=== PATIENT | female | born 1990 | race Caucasian/White ===

== ENCOUNTER → 2017-10-12 | Outpatient (CLI) | payer BC ==
[2017-10-12 12:11] LABS: BASO # 0.1 10^3/uL (0.0-0.2); BASO % 0.5 % (0.0-1.0); EOS # 0.2 10^3/uL (0.0-0.50); EOS % 1.7 % (0.0-3.0); IMMATURE GRANULOCYTE % 0.3 % (0-0); LYMPH # 3.8 10^3/uL (1.5-6.5); LYMPH % 35.4 % (24.0-44.0); MEAN CORPUSCULAR HEMOGLOBIN 27.3 pg (27.0-33.0); MEAN CORPUSCULAR HGB CONC 32.2 g/dl (32.0-36.5); MONO # 0.5 10^3/uL (0.0-0.8); MONO % 4.4 % (0.0-5.0); NEUTROPHILS # 6.1 10^3/uL (1.8-7.7); NEUTROPHILS % 57.7 % (36.0-66.0); PLATELET COUNT, AUTOMATED 333 10^3/uL (150-450); RED CELL DISTRIBUTION WIDTH 13.3 % (11.5-14.5); WHITE BLOOD COUNT 10.6 10^3/uL (4.0-10.0)
[2017-10-12 12:52] LABS: HBsAg Prenatal NEGATIVE (NEGATIVE)
== END ==
LOC: M LAB 08:00
DX: Z3A.09 9 weeks gestation of pregnancy (principal)
CPT/HCPCS: 86762

== ENCOUNTER → 2017-12-09 | Outpatient (CLI) | payer OTHER | LOC: M RAD 10:08 | DX: Z36.9 Encounter for antenatal screening, unspecified (principal); Z3A.19 19 weeks gestation of pregnancy | CPT/HCPCS: 76811 ==

== ENCOUNTER 2017-12-11 12:23 | Emergency (ER) | payer OTHER ==
[2017-12-11 13:51] LABS: INFLUENZA A AMPLIFICATION POSITIVE (NEGATIVE); INFLUENZA B AMPLIFICATION NEGATIVE (NEGATIVE)
== END 2017-12-11 14:22 | disposition home or self-care (01) ==
LOC: M ED 12:23
DX: O99.512 Diseases of the respiratory system complicating pregnancy, second trimester (principal); J09.X2 Influenza due to identified novel influenza A virus with other respiratory manifestations; Z3A.19 19 weeks gestation of pregnancy
CPT/HCPCS: 87502

== ENCOUNTER → 2018-01-14 | Outpatient (CLI) | payer OTHER | LOC: M RAD 09:11 | DX: Z34.82 Encounter for supervision of other normal pregnancy, second trimester (principal) | CPT/HCPCS: 76816 ==

== ENCOUNTER → 2018-02-04 | Outpatient (CLI) | payer OTHER ==
[2018-02-04 09:53] LABS: HEMATOCRIT 32.8 % (36.0-47.0); HEMOGLOBIN 10.5 g/dl (12.0-15.5); MEAN CORPUSCULAR HEMOGLOBIN 28.2 pg (27.0-33.0); MEAN CORPUSCULAR VOLUME 87.9 fl (80.0-96.0); PLATELET COUNT, AUTOMATED 289 10^3/uL (150-450); RED BLOOD COUNT 3.73 10^6/uL (4.00-5.40); RED CELL DISTRIBUTION WIDTH 14.3 % (11.5-14.5); WHITE BLOOD COUNT 10.6 10^3/uL (4.0-10.0)
[2018-02-04 10:13] LABS: GLUCOSE CHALLENGE TEST 1 HOUR 121 MG/DL (LESS THAN 140)
== END ==
LOC: M LAB 08:09
DX: Z34.82 Encounter for supervision of other normal pregnancy, second trimester (principal)
CPT/HCPCS: 82950

== ENCOUNTER 2018-03-11 17:54 | Emergency (ER) | payer OTHER ==
[2018-03-11 18:46] LABS: BASO % 0.2 % (0.0-1.0); EOS # 0.1 10^3/uL (0.0-0.50); HEMATOCRIT 32.4 % (36.0-47.0); HEMOGLOBIN 10.6 g/dl (12.0-15.5); IMMATURE GRANULOCYTE % 0.4 % (0-3.0); LYMPH % 25.3 % (24.0-44.0); MEAN CORPUSCULAR HEMOGLOBIN 28.1 pg (27.0-33.0); MEAN CORPUSCULAR HGB CONC 32.7 g/dl (32.0-36.5); MEAN CORPUSCULAR VOLUME 85.9 fl (80.0-96.0); MONO # 0.5 10^3/uL (0.0-0.8); MONO % 4.2 % (0.0-5.0); NEUTROPHILS # 8.1 10^3/uL (1.8-7.7); NEUTROPHILS % 68.9 % (36.0-66.0); PLATELET COUNT, AUTOMATED 297 10^3/uL (150-450); RED BLOOD COUNT 3.77 10^6/uL (4.00-5.40); RED CELL DISTRIBUTION WIDTH 14.4 % (11.5-14.5); WHITE BLOOD COUNT 11.8 10^3/uL (4.0-10.0)
[2018-03-11 18:53] LABS: AMORPHOUS SEDIMENT SMALL (NEGATIVE); APPEARANCE, URINE HAZY (CLEAR); BACTERIA, URINE AUTO 2+ (NEGATIVE); BILIRUBIN, URINE AUTO NEGATIVE (NEGATIVE); BLOOD, URINE BLOOD NEGATIVE (NEGATIVE); CALCIUM OXALATE CRYSTALS SMALL; COLOR, URINE YELLOW (YELLOW); GLUCOSE, URINE (UA) AUTO NEGATIVE (NEGATIVE); KETONE, URINE AUTO NEGATIVE (NEGATIVE); LEUKOCYTE ESTERASE, URINE AUTO NEGATIVE (NEGATIVE); MUCUS, URINE SMALL (NEGATIVE); NITRITE, URINE AUTO NEGATIVE (NEGATIVE); PROTEIN, URINE AUTO 1+ mg/dL (NEGATIVE); RBC, URINE AUTO 1 /HPF (0-3); SPECIFIC GRAVITY URINE AUTO 1.016 (1.002-1.035); SQUAMOUS EPITHELIAL CELL UR AU 1 /HPF (0-6); UROBILINOGEN, URINE AUTO 0.2 mg/dL (0.0-2.0); WBC, URINE AUTO 1 /HPF (0-3)
[2018-03-11 19:17] LABS: ALBUMIN 2.7 GM/DL (3.2-5.2); ALBUMIN/GLOBULIN RATIO 0.61 (1.00-1.93); ALKALINE PHOSPHATASE 104 U/L (45-117); ALT/SGPT 11 U/L (12-78); ANION GAP 8 MEQ/L (8-16); AST/SGOT 9 U/L (7-37); BILIRUBIN,DIRECT < 0.1 MG/DL (0.0-0.2); BILIRUBIN,TOTAL 0.2 MG/DL (0.2-1.0); BLOOD UREA NITROGEN 7 MG/DL (7-18); CALCIUM LEVEL 9.5 MG/DL (8.5-10.1); CARBON DIOXIDE LEVEL 25 MEQ/L (21-32); CHLORIDE LEVEL 107 MEQ/L (98-107); CREATININE FOR GFR 0.56 MG/DL (0.55-1.30); GLOMERULAR FILTRATION RATE > 60.0 (>60); GLUCOSE, FASTING 106 MG/DL (70-100); POTASSIUM SERUM 3.9 MEQ/L (3.5-5.1); SODIUM LEVEL 140 MEQ/L (136-145); TOTAL PROTEIN 7.1 GM/DL (6.4-8.2)
== END 2018-03-11 20:47 | disposition admitted as inpatient to this hospital (09) ==
LOC: M ED 17:54
DX: O14.93 Unspecified pre-eclampsia, third trimester (principal); Z3A.32 32 weeks gestation of pregnancy
CPT/HCPCS: 93970

== ENCOUNTER 2018-03-11 20:51 | Outpatient (CLI) | payer OTHER ==
[2018-03-11] MEDS: LABETALOL 100 MG TAB PO (22:59)
[2018-03-11 23:13] LABS: TOTAL PROTEIN,RANDOM URINE 44.6 MG/DL (0.0-12.0)
== END 2018-03-11 23:58 | disposition home or self-care (01) ==
LOC: M LDO 20:51
DX: O12.03 Gestational edema, third trimester (principal); Z3A.31 31 weeks gestation of pregnancy
CPT/HCPCS: 59025

== ENCOUNTER → 2018-03-13 | Outpatient (REF) | payer OTHER ==
[2018-03-13 10:55] LABS: TOTAL VOLUME, URINE 1550 ML
[2018-03-13 11:03] LABS: TOTAL PROTEIN 24 HOUR URINE 263.5 MG/24HR (50-150)
== END ==
LOC: M LAB REF 09:46
DX: O13.3 Gestational [pregnancy-induced] hypertension without significant proteinuria, third trimester (principal)

== ENCOUNTER → 2018-03-18 | Outpatient (CLI) | payer OTHER | LOC: M RAD 15:02 | DX: O13.3 Gestational [pregnancy-induced] hypertension without significant proteinuria, third trimester (principal); Z3A.32 32 weeks gestation of pregnancy | CPT/HCPCS: 76819 ==

== ENCOUNTER → 2018-03-25 | Outpatient (CLI) | payer OTHER | LOC: M RAD 14:54 | DX: O13.3 Gestational [pregnancy-induced] hypertension without significant proteinuria, third trimester (principal) | CPT/HCPCS: 76815 ==

== ENCOUNTER → 2018-04-01 | Outpatient (CLI) | payer OTHER | LOC: M RAD 14:53 | DX: O13.3 Gestational [pregnancy-induced] hypertension without significant proteinuria, third trimester (principal); Z3A.35 35 weeks gestation of pregnancy | CPT/HCPCS: 76815 ==

== ENCOUNTER → 2018-04-08 | Outpatient (CLI) | payer OTHER | LOC: M RAD 15:01 | DX: O13.3 Gestational [pregnancy-induced] hypertension without significant proteinuria, third trimester (principal) | CPT/HCPCS: 76816 ==

== ENCOUNTER → 2018-04-14 | Outpatient (REF) | payer OTHER | LOC: M LAB REF 17:25 | DX: Z34.83 Encounter for supervision of other normal pregnancy, third trimester (principal); Z36.89 Encounter for other specified antenatal screening | CPT/HCPCS: 87186 ==

== ENCOUNTER → 2018-04-15 | Outpatient (CLI) | payer OTHER | LOC: M RAD 14:59 | DX: O13.3 Gestational [pregnancy-induced] hypertension without significant proteinuria, third trimester (principal); Z3A.35 35 weeks gestation of pregnancy | CPT/HCPCS: 76815 ==

== ENCOUNTER → 2019-11-25 | Outpatient (CLI) | payer OTHER ==
[~2019-11-25] MED LIST: FERR325T16 PO; IBUP80TA PO; LABE10TAB PO; MM S100C PO; OSEL75CA PO; PERCOCET PO; PRENTAB16 PO; ROBIMIS PO
--- NOTE | 2019-11-25 17:40 | REP ---
Obstetric sonography: History: Supervision of first trimester study. Findings: Transabdominal and transvaginal scanning confirms the presence of a single living intrauterine gestation. Embryonic pole measures 28 mm in crown-rump length. This corresponds to a gestational age estimate of 9 weeks 4 days. heart rate is recorded at 169 beats per minute. A 3.8 x 3.8 x 2.6 cm complex cystic area is seen to the left of the gestational sac consistent with a fairly large subchorionic hemorrhage. A second gestational sac is difficult to completely exclude. There is a hypoechoic cystic area in the maternal right ovary consistent with corpus luteum. Impression: Viable single intrauterine gestation at 9 weeks 4 days by crown-rump length. JAUN by today's sonography June 25, 2020. There is a complex cystic area to the left of the gestational sac in the uterus, subchorionic hemorrhage versus second gestational sac. Recommend follow-up.
== END ==
LOC: M WHC 09:29
PROVIDERS: ATTEND Advanced Practice Midwife
DX: O34.211 Maternal care for low transverse scar from previous cesarean delivery (principal)

== ENCOUNTER → 2019-12-05 | Outpatient (CLI) | payer OTHER ==
[2019-12-05 13:24] LABS: BASO % 0.3 % (0.0-1.0); EOS # 0.1 10^3/uL (0.0-0.5); EOS % 1.6 % (0.0-3.0); HEMATOCRIT 36.9 % (36.0-47.0); HEMOGLOBIN 11.3 g/dl (12.0-15.5); LYMPH # 2.8 10^3/uL (1.5-5.0); LYMPH % 32.1 % (24.0-44.0); MEAN CORPUSCULAR HEMOGLOBIN 26.8 pg (27.0-33.0); MEAN CORPUSCULAR HGB CONC 30.6 g/dl (32.0-36.5); MEAN CORPUSCULAR VOLUME 87.6 fl (80.0-96.0); MONO # 0.3 10^3/uL (0.0-0.8); MONO % 3.8 % (0.0-5.0); NEUTROPHILS # 5.4 10^3/uL (1.5-8.5); PLATELET COUNT, AUTOMATED 287 10^3/uL (150-450); RED BLOOD COUNT 4.21 10^6/uL (4.00-5.40); WHITE BLOOD COUNT 8.7 10^3/uL (4.0-10.0)
[2019-12-05 13:40] LABS: HEMOGLOBIN A1c 5.6 %
[2019-12-05 14:03] LABS: CREATININE,RANDOM URINE 88.9 MG/DL
[2019-12-05 14:07] LABS: ALT/SGPT 10 U/L (12-78); BILIRUBIN,TOTAL 0.5 MG/DL (0.2-1.0); CREATININE FOR GFR 0.51 MG/DL (0.55-1.30); GLOMERULAR FILTRATION RATE > 60.0 (>60); GLUCOSE CHALLENGE TEST 1 HOUR 93 MG/DL (LESS THAN 140); LDH LACTATE DEHYDROGENASE 128 U/L (84-246); RUBELLA IgG QUALITATIVE IMMUNE (IMMUNE); URIC ACID 5.5 MG/DL (2.6-6.0)
[2019-12-05 14:35] LABS: HEPATITIS C VIRUS ABY INDEX < 0.0 INDEX (<0.8); HIV 1&2 SCREEN CENTAUR NEGATIVE (NEGATIVE)
[2019-12-05 15:17] LABS: CHLAMYDIA DNA AMPLIFICATION NEGATIVE (NEGATIVE); GC DNA AMPLIFICATION NEGATIVE (NEGATIVE)
== END ==
LOC: M LAB 11:04
PROVIDERS: ATTEND Advanced Practice Midwife
DX: O34.211 Maternal care for low transverse scar from previous cesarean delivery (principal)

== ENCOUNTER → 2020-02-10 | Outpatient (CLI) | payer OTHER ==
--- NOTE | 2020-02-10 15:11 | REP ---
OB ULTRASOUND: Real-time sonographic evaluation of the gravid uterus is performed. There is a single intrauterine gestation with an estimated gestational age 21 weeks 0 days EDC 06/22/2020. Today's measurements indicate appropriate growth. Biometry and Growth: BPD 49 mm = 20 weeks 5 days, 44th percentile HC 181 mm = 20 weeks 3 days, 35th percentile AC 161 mm = 21 weeks 1 day, 54th percentile FL 34 mm = 20 weeks 4 days, 40th percentile HC/AC ratio 1.12 within normal range of 1.105 to 1.24 Estimated weight 384 grams 43rd percentile. SEEN/GROSSLY UNREMARKABLE Lateral ventricles Yes Posterior fossa Yes Upper lip Yes Four-chamber heart No LVOT No RVOT No Stomach Yes Cord insertion Yes Three vessel cord Yes Kidneys Yes Bladder Yes Spine No Cervical length: Closed and measures 3.2 cm in length. heart rate: 150 beats per minute. position: Transverse with head toward the maternal right side. Placenta: Posterior and grade 1 with no previa or abruption. Amniotic fluid: Within normal limits.
== END ==
LOC: M WHC 12:05
PROVIDERS: ATTEND Specialist
DX: O34.211 Maternal care for low transverse scar from previous cesarean delivery (principal); Z3A.21 21 weeks gestation of pregnancy

== ENCOUNTER → 2020-02-24 | Outpatient (CLI) | payer OTHER ==
--- NOTE | 2020-02-24 17:23 | REP ---
REASON FOR EXAM: Followup anatomy. Prior examination, 02/10/2020, failed to optimally visualize four-chamber heart, right and left ventricular outflow tracts, and spine for which this examination was performed. Multiple ultrasonographic images of the gravid uterus show a single living intrauterine gestation in the breech presentation. Doppler interrogation of the heart shows a heart rate of 150 beats per minute. The placenta is posterior and not low lying. The subjective amniotic fluid volume is within normal limits. The cervix measures 4 cm in length and is closed. BPD 5.3 cm = 22 weeks 2 days HC 20.3 cm = 22 weeks 3 days AC 17.5 cm = 22 weeks 3 days FL 3.8 cm = 22 weeks 2 days The estimated weight is 499 grams, which is at the 48th percentile for a 22 week 2 day gestational age. Four-chamber heart and both right and left ventricular outflow tracts were well seen today and appear normal. The spine remains suboptimally visualized. IMPRESSION: Single living intrauterine gestation, as described above, with an estimated gestational age of 22 weeks 0 days via composite criteria and an estimated date of delivery of 06/29/2020 by today's exam. No anomalies were detected, however, I recommend a followup examination for optimal visualization of the spine.
== END ==
LOC: M WHC 10:53
PROVIDERS: ATTEND Nurse Practitioner Women's Health
DX: Z34.82 Encounter for supervision of other normal pregnancy, second trimester (principal)

== ENCOUNTER → 2020-03-06 | Outpatient (REF) | payer OTHER ==
[2020-03-06 14:25] LABS: HEMOGLOBIN 11.3 g/dl (12.0-15.5); MEAN CORPUSCULAR HEMOGLOBIN 28.3 pg (27.0-33.0); MEAN CORPUSCULAR HGB CONC 31.4 g/dl (32.0-36.5); PLATELET COUNT, AUTOMATED 295 10^3/uL (150-450); WHITE BLOOD COUNT 11.2 10^3/uL (4.0-10.0)
== END ==
LOC: M PLALAB 10:35
PROVIDERS: ATTEND Nurse Practitioner Women's Health
DX: Z3A.21 21 weeks gestation of pregnancy (principal)

== ENCOUNTER → 2020-03-27 | Outpatient (CLI) | payer OTHER ==
--- NOTE | 2020-03-28 02:43 | REP ---
Clinical: Anatomical evaluation. Comparison: 02/24/2020 . Findings: Examination demonstrates a single live intrauterine in breech presentation. motion is identified by technologist. Placenta is noted posterior and grade I without evidence for placenta previa or abruption. Amniotic fluid volume is normal. Cervix measures 3.3 cm in length and appears closed. No evidence for nuchal cord. Gestational age by first US 27 weeks 1 day with JAUN 06/25/2020 . Gestational age by current measurements 27 weeks 5 days with JAUN 06/21/2020 . FHR equals 140 beats per minute. Estimated weight 1157 grams ( 63rd percentile). Anatomical assessment demonstrates normal structures including spine. Impression: 1. Single live intrauterine in breech presentation demonstrating appropriate estimated weight and growth. 2. In conjunction with prior examination anatomical assessment is complete and normal.
== END ==
LOC: M WHC 09:21
PROVIDERS: ATTEND Advanced Practice Midwife
DX: Z34.82 Encounter for supervision of other normal pregnancy, second trimester (principal)

== ENCOUNTER → 2020-05-11 | Outpatient (REF) | payer OTHER ==
[~2020-05-11] MED LIST changes: +OXYC1TAB23 PO; +PRENTAB9 PO
[2020-05-11 12:28] LABS: HEMATOCRIT 36.8 % (36.0-47.0); HEMOGLOBIN 11.5 g/dl (12.0-15.5); MEAN CORPUSCULAR HEMOGLOBIN 28.1 pg (27.0-33.0); MEAN CORPUSCULAR HGB CONC 31.3 g/dl (32.0-36.5); PLATELET COUNT, AUTOMATED 305 10^3/uL (150-450); RED BLOOD COUNT 4.09 10^6/uL (4.00-5.40); WHITE BLOOD COUNT 10.4 10^3/uL (4.0-10.0)
[2020-05-11 12:46] LABS: TOTAL PROTEIN,RANDOM URINE 189.6 MG/DL (0.0-12.0)
[2020-05-11 12:51] LABS: ALT/SGPT 8 U/L (12-78); BILIRUBIN,TOTAL 0.1 MG/DL (0.2-1.0); CREATININE FOR GFR 0.53 MG/DL (0.55-1.30); GLOMERULAR FILTRATION RATE > 60.0 (>60); LDH LACTATE DEHYDROGENASE 146 U/L (84-246); URIC ACID 7.3 MG/DL (2.6-6.0)
== END ==
LOC: M PLALAB 09:16
PROVIDERS: ATTEND Advanced Practice Midwife
DX: O16.3 Unspecified maternal hypertension, third trimester (principal)

== ENCOUNTER 2020-05-15 12:34 | Outpatient (CLI) | payer OTHER ==
[~2020-05-15] VITALS: Ht 160 cm; Wt 153.7 kg
[~2020-05-15 12:34] MED LIST changes: -OXYC1TAB23 PO; -PRENTAB9 PO
[2020-05-15 12:55] VITALS: BP 152/84
[2020-05-15] MEDS ORDERED: PRENTAB9 PO (12:56)
[2020-05-15 13:04] VITALS: BP 135/77
[2020-05-15 13:20] VITALS: BP 124/71
[2020-05-15 13:35] VITALS: BP 123/68
[2020-05-15 13:43] VITALS: BP 148/89
[2020-05-15] MEDS ORDERED: BETAMETHASONE SOLUSPAN 6MG/ML 5ML VIAL (J0702 PER 3MG) IM ONE (13:45)
[2020-05-15 14:06] LABS: HEMATOCRIT 36.6 % (36.0-47.0); HEMOGLOBIN 11.7 g/dl (12.0-15.5); MEAN CORPUSCULAR HEMOGLOBIN 28.4 pg (27.0-33.0); MEAN CORPUSCULAR VOLUME 88.8 fl (80.0-96.0); PLATELET COUNT, AUTOMATED 279 10^3/uL (150-450); RED BLOOD COUNT 4.12 10^6/uL (4.00-5.40); WHITE BLOOD COUNT 10.7 10^3/uL (4.0-10.0)
[2020-05-15 14:30] LABS: ALT/SGPT 11 U/L (12-78); BILIRUBIN,TOTAL 0.1 MG/DL (0.2-1.0); CREATININE FOR GFR 0.56 MG/DL (0.55-1.30); GLOMERULAR FILTRATION RATE > 60.0 (>60); LDH LACTATE DEHYDROGENASE 148 U/L (84-246); URIC ACID 7.2 MG/DL (2.6-6.0)
[2020-05-15 15:04] VITALS: BP 151/85
--- NOTE | 2020-05-15 15:29 | IPN ---
DATE: 05/15/2020 29-year-old, 2, para 1 female at 34-3/7 weeks gestation presents from the office with elevated blood pressure of 160/80 range. She denies headaches. She has increased swelling in her lower extremities. She was diagnosed with preeclampsia 4 days prior to this evaluation. OBJECTIVE: Blood pressure 154/84, pulse 84, afebrile, no apparent distress. Head and neck: Exam normal. Lungs: Clear. Heart: Regular. Abdomen: Nontender, gravid, heart tones category 1, contractions none. 2+ edema in lower extremities. LABORATORY DATA: Urine protein/creatinine ratio is 2.5. ASSESSMENT: 29-year-old, 2, para 1 at 34-3/7 weeks gestation with preeclampsia. PLAN: The patient received first dose of betamethasone for lung maturity today. Repeat labs performed. The patient has an ultrasound scheduled for tomomrrow. Will move up section date to 35+ weeks on 05/21/2020. Consent for signed. Patient will maintain modified bed rest at home.
== END 2020-05-15 15:35 | disposition home or self-care (01) ==
LOC: M LDO 12:34
PROVIDERS: ATTEND Specialist
DX: O14.93 Unspecified pre-eclampsia, third trimester (principal); Z3A.34 34 weeks gestation of pregnancy
CPT/HCPCS: 36415; 59025; 82247; 82565; 82570; 83615; 84156; 84450; 84460; 84550; 85027; 96372; J0702

== ENCOUNTER 2020-05-16 12:55 | Outpatient (CLI) | payer OTHER ==
[~2020-05-16] VITALS: Ht 160 cm; Wt 153.5 kg
[~2020-05-16 12:55] MED LIST changes: -OXYC1TAB23 PO
[2020-05-16 13:17] VITALS: BP 146/79
[2020-05-16] MEDS ORDERED: BETAMETHASONE SOLUSPAN 6MG/ML 5ML VIAL (J0702 PER 3MG) IM ONE (13:30)
== END 2020-05-16 13:47 | disposition home or self-care (01) ==
LOC: M LDO 12:55
PROVIDERS: ATTEND Advanced Practice Midwife
DX: O34.211 Maternal care for low transverse scar from previous cesarean delivery (principal); Z87.59 Personal history of other complications of pregnancy, childbirth and the puerperium; Z3A.35 35 weeks gestation of pregnancy
CPT/HCPCS: 96372; J0702

== ENCOUNTER → 2020-05-16 | Outpatient (CLI) | payer OTHER ==
[~2020-05-16] MED LIST changes: +OXYC1TAB23 PO; +PRENTAB9 PO
--- NOTE | 2020-05-17 01:47 | REP ---
OB ULTRASOUND: Real-time sonographic evaluation of gravid uterus performed. There is a single living intrauterine gestation. The estimated gestational age is 34 weeks 5 days, EDC 06/22/2020. Today's measurements indicate appropriate growth. BPD 84 mm = 34 weeks 0 days, 40th percentile HC 311 mm = 34 weeks 5 days, 51st percentile AC 310 mm = 34 weeks 6 days, 53rd percentile Femur length 68 mm = 34 weeks 5 days, 50th percentile HC/AC ratio 1.00, within normal range 0.94 to 1.13 Estimated weight 2504 grams, 48th percentile. Cervix closed and measures 3.1 cm in length. heart rate 132 beats per minute. Amniotic fluid within normal limits. DONNA 13.8, normal range 8.0 to 24.9. position breech. Placenta posterior and grade 3 with no previa or abruption.
== END ==
LOC: M WHC 15:26
PROVIDERS: ATTEND Advanced Practice Midwife
DX: O26.843 Uterine size-date discrepancy, third trimester (principal); Z3A.34 34 weeks gestation of pregnancy

== ENCOUNTER → 2020-05-16 | Outpatient (CLI) | payer OTHER | LOC: M LABSMTC 13:58 | PROVIDERS: ATTEND Anesthesiology | DX: Z01.818 Encounter for other preprocedural examination (principal); Z11.59 Encounter for screening for other viral diseases | CPT/HCPCS: C9803; U0003 ==

== ENCOUNTER 2020-05-21 04:43 | Inpatient (IN) | payer OTHER ==
[~2020-05-21] VITALS: Ht 160 cm; Wt 157.3 kg
[2020-05-21] VITALS (8 sets, daily range): BP systolic 127–162; BP diastolic 73–96
[2020-05-21] MEDS ORDERED: ceFAZolin SOD 2 GM in IV 1 EA IV ONE (05:00)
[2020-05-21] MEDS ORDERED: LR 800 ML IV ONE (05:00)
[2020-05-21] MEDS ORDERED: BICITRA 30ML SOLN UDC PO ONE (05:00)
[2020-05-21] MEDS ORDERED: LR 1,000 ML IV SCH (05:00)
[2020-05-21 05:47] LABS: HEMATOCRIT 35.2 % (36.0-47.0); HEMOGLOBIN 11.6 g/dl (12.0-15.5); MEAN CORPUSCULAR HEMOGLOBIN 28.9 pg (27.0-33.0); MEAN CORPUSCULAR VOLUME 87.8 fl (80.0-96.0); PLATELET COUNT, AUTOMATED 309 10^3/uL (150-450); RED BLOOD COUNT 4.01 10^6/uL (4.00-5.40); WHITE BLOOD COUNT 12.4 10^3/uL (4.0-10.0)
[2020-05-21] MEDS ORDERED: OXYC1TAB23 PO (07:14)
[2020-05-21] MEDS ORDERED: MORPHINE PRES-FREE INJ 10 MG/10 ML VIAL (J2274) As Ordered ONE (07:19)
[2020-05-21] MEDS ORDERED: ePHEDrine SULFATE 25 MG/5 ML(5MG/ML) SYRINGE As Ordered ONE ×2 (07:20→07:51)
[2020-05-21] MEDS ORDERED: OXYTOCIN 30 UNITS IN 0.9% NaCl 500ML IV BAG (J2590) As Ordered ONE ×2 (07:20→08:42)
[2020-05-21] MEDS ORDERED: PHENYLephrine HCL 500 MCG/5 ML (100MCG/ML) SYRINGE (J2370) As Ordered ONE (07:20)
[2020-05-21] MEDS ORDERED: NALBUPHINE HCL 10 MG/ML AMP (J2300) IV PRN (07:43)
[2020-05-21] MEDS ORDERED: ONDANSETRON 4MG/2ML VIAL IV PRN ×3 (07:43→09:00)
[2020-05-21] MEDS ORDERED: diphenhydrAMINE 50MG/ML VIAL (J1200) IV PRN ×2 (07:43→09:00)
[2020-05-21] MEDS ORDERED: METOCLOPRAMIDE INJ 10MG/2ML VIAL (J2765 PER 1) IV PRN (07:43)
[2020-05-21] MEDS ORDERED: NALOXONE INJ 0.4MG/1ML VIAL (J2310 PER 1MG) IV PRN ×2 (07:43)
[2020-05-21] MEDS ORDERED: KETOROLAC 60MG 2ML VIAL As Ordered ONE (08:02)
[2020-05-21] MEDS ORDERED: ONDANSETRON 4MG/2ML VIAL As Ordered ONE (08:02)
[2020-05-21] MEDS ORDERED: hydrALAZINE 20MG/ML 1ML VIAL (J0360 PER 20MG) As Ordered ONE (08:18)
[2020-05-21] MEDS ORDERED: OXYTOCIN DRIP 30 UNITS in IV 1 EA IV SCH (08:40)
[2020-05-21] MEDS ORDERED: RHOGAM 300 MCG (1500 IU) INJ (J2790) IM SCH (08:45)
[2020-05-21] MEDS ORDERED: MEASLES,MUMPS,RUBELLA VACCINE INJ (MMR-II) (90707) SC SCH (08:45)
[2020-05-21] MEDS ORDERED: PERCOCET 5MG/325MG TAB PO PRN (08:45)
[2020-05-21] MEDS ORDERED: HYDROMORPHONE HCL 0.5 MG/ 0.5 ML SYRINGE (J1170 PER 1) IV PRN (09:00)
[2020-05-21] MEDS ORDERED: oxyCODONE 5MG TAB PO PRN (09:00)
[2020-05-21] MEDS ORDERED: MEPERIDINE INJ 25 MG/ML VIAL (J2175) IV PRN (09:00)
[2020-05-21] MEDS ORDERED: fentaNYL 100 MCG/2 ML INJECTION (J3010) IV PRN (09:00)
[2020-05-21] MEDS: PRENATAL VITAMINS CHEWABLE TABLET PO SCH (10:06)
[2020-05-21] MEDS: LABETALOL 200 MG TAB PO SCH ×2 (11:13→20:38)
[2020-05-21] MEDS: LR 1,000 ML IV SCH ×2 (12:48→20:31)
[2020-05-21] MEDS: KETOROLAC 30 MG/ML 1ML VIAL IV SCH ×2 (14:42→20:30)
[2020-05-22 02:00] VITALS: BP 114/57
[2020-05-22] MEDS: KETOROLAC 30 MG/ML 1ML VIAL IV SCH (03:07)
[2020-05-22 06:00] VITALS: BP 122/61
[2020-05-22 07:16] LABS: HEMOGLOBIN 9.8 g/dl (12.0-15.5); MEAN CORPUSCULAR HEMOGLOBIN 28.7 pg (27.0-33.0); MEAN CORPUSCULAR HGB CONC 31.6 g/dl (32.0-36.5); MEAN CORPUSCULAR VOLUME 90.6 fl (80.0-96.0); PLATELET COUNT, AUTOMATED 254 10^3/uL (150-450); RED BLOOD COUNT 3.42 10^6/uL (4.00-5.40); WHITE BLOOD COUNT 10.2 10^3/uL (4.0-10.0)
[2020-05-22] MEDS: PERCOCET 5MG/325MG TAB PO PRN ×2 (08:37→16:07)
[2020-05-22] MEDS: PRENATAL VITAMINS CHEWABLE TABLET PO SCH (08:37)
--- NOTE | 2020-05-22 09:07 | IPNPDOC ---
Progress Note Date of Service: May 22, 2020 Day#: 1 Progress Note SUBJECT: Patient is a 29-year-old female who had a repeat section early due to preeclampsia. Her IV has been saline locked. She has been ambulating, voiding spontaneously without issue and tolerating regular diet. She is formula feeding her . She denies any preeclamptic symptoms. OBJECTIVE: VITAL SIGNS: Within normal limits for preeclampsia (no severe range BP), afebrile. Alert and oriented times three. Breath sounds clear to auscultation. Heart rate: Regular rate and rhythm, no murmurs, rubs or gallops. Abdomen: Fundus firm. Dressing is intact. Minimal lochia. ASSESSMENT: Day 1 postoperative, preeclampsia PLAN: 1. Continue supportive nursing care. 2. Patient to shower today. 3. Anticipate discharge to home tomorrow. VS, I&O, 24H, Fishbone Vital Signs/I&O Vital Signs Date Time Temp Pulse Resp B/P (MAP) Pulse Ox O2 Delivery O2 Flow Rate FiO2 05/22/20 08:37 20 05/22/20 06:00 96.9 76 122/61 (81) 96 Room Air I&O- Last 24 Hours up to 6 AM 05/22/20 06:00 Intake Total 3285 ml Output Total 1325 ml Balance 1960 ml Laboratory Data 24H LABS Laboratory Tests 2 05/22/20 06:42: Nucleated Red Blood Cells % (auto) 0.0 CBC/BMP Laboratory Tests 05/22/20 06:42 Item Value Date Time White Blood Count 12.4 10^3/uL H 05/21/20 0530 Red Blood Count 4.01 10^6/uL 05/21/20 0530 Hemoglobin 11.6 g/dl L 05/21/20 0530 Hematocrit 35.2 % L 05/21/20 0530 Mean Corpuscular Volume 87.8 fl 05/21/20 0530 Mean Corpuscular Hemoglobin 28.9 pg 05/21/20 0530 Mean Corpuscular Hemoglobin Concent 33.0 g/dl 05/21/20 0530 Red Cell Distribution Width 14.7 % H 05/21/20 0530 Platelet Count 309 10^3/uL 05/21/20 0530 Item Value Date Time White Blood Count 10.2 10^3/uL H 05/22/20 0642 Red Blood Count 3.42 10^6/uL L 05/22/20 0642 Hemoglobin 9.8 g/dl L 05/22/20 0642 Mean Corpuscular Volume 90.6 fl 05/22/20 0642 Hematocrit 31.0 % L 05/22/20 0642 Mean Corpuscular Hemoglobin 28.7 pg 05/22/20 0642 Mean Corpuscular Hemoglobin Concent 31.6 g/dl L 05/22/20 0642 Red Cell Distribution Width 15.7 % H 05/22/20 0642 Platelet Count 254 10^3/uL 05/22/20 0642 ABHISHEK BACA CNM May 22, 2020 09:07
[2020-05-22] MEDS: LABETALOL 200 MG TAB PO SCH ×2 (09:13→21:10)
[2020-05-22 10:00] VITALS: BP 130/61
[2020-05-22] MEDS: IBUPROFEN 800 MG TAB PO SCH ×2 (11:09→18:34)
[2020-05-22 14:02] VITALS: BP 118/65
[2020-05-22 18:04] VITALS: BP 127/80
[2020-05-22 22:24] VITALS: BP 140/89
[2020-05-23] MEDS: IBUPROFEN 800 MG TAB PO SCH ×2 (02:16→10:41)
[2020-05-23 02:21] VITALS: BP 134/75
[2020-05-23 06:32] VITALS: BP 149/87
[2020-05-23] MEDS ORDERED: IBUP80TA PO (06:48)
--- NOTE | 2020-05-23 06:50 | DS.PDOC ---
Discharge Summary General Date of Admission May 21, 2020 at 04:43 Date of Discharge 05/23/2020 Attending Physician: JUANJOSE GANT MD Discharge Summary PROCEDURES PERFORMED DURING STAY: 1. Spinal anesthesia. 2. section. ADMITTING DIAGNOSES: 1. Previous section 2. Preeclampsia DISCHARGE DIAGNOSES: 1. Previous section, status post repeat section. 2. Preecla mpsia COMPLICATIONS/CHIEF COMPLAINT: Previous Section. HISTORY OF PRESENT ILLNESS:, 29-year-old who presented for scheduled section for history of prior section. section was uncomplicated. Patient did well postoperatively. By postoperative day #2, had met all discharge criteria. Endometriosis. Discharge home in stable condition. DISCHARGE MEDICATIONS: Please see below. ALLERGIES: Please see below. PHYSICAL EXAMINATION ON DISCHARGE: VITAL SIGNS: Please see below. GENERAL: Well-appearing ABDOMINAL EXAMINATION: Soft, appropriately tender. Fundus is firm below umbilicus. Incision was dressed EXTREMITIES:. Negative calf tenderness NEUROLOGICAL EXAMINATION: Grossly intact PSYCHIATRIC EXAMINATION: Appropriate LABORATORY DATA: Please see below. ACTIVITY: As tolerated. DIET: Regular DISCHARGE PLAN: Home DISCHARGE INSTRUCTIONS: 1. Removed dressing in 5-7 days. 2. 2. Reports severe pain, heavy vaginal bleeding, fever, incisional issues. 3. Follow-up in 2 weeks for incision check. DISCHARGE CONDITION: Stable. Vital Signs/I&Os Vital Signs Date Time Temp Pulse Resp B/P (MAP) Pulse Ox O2 Delivery O2 Flow Rate FiO2 05/23/20 06:32 97.6 87 18 149/87 (107) 05/22/20 21:10 Room Air 05/22/20 14:02 97 Discharge Medications Scheduled Ibuprofen (Ibuprofen) 800 Mg Tablet, 800 MG PO Q8H No.137/Iron/Folic Acd ( Vitamin Tablet) 1 Each Tablet, 1 TAB PO DAILY, (Reported) Scheduled PRN Oxycodone HCl/Acetaminophen (Oxycodone-Acetaminophen 5-325) 1 Each Tablet, 1 TAB PO TIDP PRN for pain Allergies Coded Allergies: No Known Allergies (Unverified , 05/15/20) KYUNG MIRANDA MD. May 23, 2020 06:50
[2020-05-23 07:45] VITALS: BP 141/81
[2020-05-23] MEDS: PRENATAL VITAMINS CHEWABLE TABLET PO SCH (08:13)
[2020-05-23 08:14] VITALS: BP 141/81
[2020-05-23] MEDS: PERCOCET 5MG/325MG TAB PO PRN (08:14)
[2020-05-23] MEDS: LABETALOL 200 MG TAB PO SCH (08:14)
== END 2020-05-23 12:34 | disposition home or self-care (01) | DRG 540 ==
LOC: M LDI 04:43 → M OBS 09:53
PROVIDERS: ADMIT Specialist; ATTEND Specialist
PROC: 10D00Z1 Extraction of Products of Conception, Low, Open Approach (ICD-10-PCS; principal; 2020-05-21 07:30)
DX: O34.211 Maternal care for low transverse scar from previous cesarean delivery (principal); Z37.0 Single live birth; Z3A.39 39 weeks gestation of pregnancy; O14.94 Unspecified pre-eclampsia, complicating childbirth

== ENCOUNTER → 2021-06-25 | Outpatient (CLI) | payer OTHER ==
[~2021-06-25] MED LIST changes: +FERR324T21 PO; -FERR325T16 PO; +LABE100T4 PO; -LABE10TAB PO; +OXYC1TAB23 PO
[2021-06-25 17:40] LABS: HEMATOCRIT 37.4 % (36.0-47.0); HEMOGLOBIN 11.8 g/dl (12.0-15.5); MEAN CORPUSCULAR HEMOGLOBIN 27.4 pg (27.0-33.0); MEAN CORPUSCULAR HGB CONC 31.6 g/dl (32.0-36.5); MEAN CORPUSCULAR VOLUME 86.8 fl (80.0-96.0); PLATELET COUNT, AUTOMATED 293 10^3/uL (150-450); RED BLOOD COUNT 4.31 10^6/uL (4.00-5.40); WHITE BLOOD COUNT 9.7 10^3/uL (4.0-10.0)
[2021-06-25 18:58] LABS: GC DNA AMPLIFICATION NEGATIVE (NEGATIVE)
[2021-06-25 19:00] LABS: HEPATITIS C VIRUS ABY INDEX < 0.0 INDEX (<0.8); HIV 1&2 SCREEN CENTAUR NEGATIVE (NEGATIVE)
== END ==
LOC: M PLALAB 14:42
PROVIDERS: ATTEND Specialist
DX: Z01.419 Encounter for gynecological examination (general) (routine) without abnormal findings (principal)

== ENCOUNTER → 2021-08-28 | Outpatient (CLI) | payer OTHER ==
--- NOTE | 2021-08-29 11:43 | REP ---
INDICATION: ANATOMY. COMPARISON: None. TECHNIQUE: Real-time sonographic evaluation of the gravid uterus performed. FINDINGS: Estimated gestational age is20 weeks 4 days, EDC 01/11/2022. Today's measurements indicate appropriate growth. Presentation: Variable Placenta posterior, grade 1, without evidence of placenta previa. heart rate is recorded at 156 beats per minute. Amniotic fluid is subjectively normal. Closed cervical length is measured at 4.1 cm. Biometry chart: BPD: 50 mm, 21 weeks 0 days, 63rd percentile. HC: 181 mm, 20 weeks 4 days, 49th percentile AC: 158 mm, 20 weeks 6 days, 57th percentile Femur length: 34 mm, 20 weeks 5 days, 55th percentile HC to AC ratio: 1.15, normal range 1.06-1.24. Estimated weight: 380g, 59th percentile. anatomy: Cranium: Grossly normal Lateral Ventricles/Choroid Plexus: Grossly normal Posterior Fossa/Cerebellum: Not well seen due to position Nose/lips/profile: Grossly normal Four chamber heart: Grossly normal Right ventricular outflow tract: Grossly normal Left ventricular outflow tract: Not well seen due to position Left-sided stomach: Grossly normal Kidneys: Grossly normal Bladder: Grossly normal Cord Insertion: Grossly normal 3 vessel cord: Grossly normal Spine: Not well seen due to position IMPRESSION: Viable single intrauterine gestation as above. <Electronically signed by Braden Horn > 08/29/21 [id number]
== END ==
LOC: M WHC 13:50
PROVIDERS: ATTEND Specialist
DX: Z36.3 Encounter for antenatal screening for malformations (principal); Z3A.20 20 weeks gestation of pregnancy

== ENCOUNTER → 2021-09-25 | Outpatient (CLI) | payer OTHER ==
--- NOTE | 2021-09-25 13:38 | REP ---
INDICATION: F/U ANATOMY COMPARISON: 08/28/2021 TECHNIQUE: Transabdominal obstetrical ultrasound with color Doppler evaluation. FINDINGS: Examination demonstrates a single live intrauterine in variable presentation. motion is identified by technologist. Placenta is noted posterior and grade 1 without evidence for placenta previa or abruption. Amniotic fluid volume is normal. Cervix measures 4.3 cm in length and appears closed.. Selected gestational age: 24 weeks 4 days with JAUN 01/11/2022. Gestational age by current measurements 25 weeks 2 days with JAUN 01/06/2022. FHR equals 147 beats per minute. Estimated weight 766 grams (63rdpercentile). Anatomical assessment demonstrates normal structures including cavum septum pellucidum, falx, cerebellum, cisterna magna, heart/ventricular outflow tracts and spine. IMPRESSION: Single live intrauterine in variable presentation demonstrating appropriate interval growth. In conjunction with prior examination anatomical assessment is complete and normal. <Electronically signed by Aden Torrez > 09/25/21 [id number]
== END ==
LOC: M WHC 12:19
PROVIDERS: ATTEND Obstetrics & Gynecology
DX: Z36.2 Encounter for other antenatal screening follow-up (principal); O34.212 Maternal care for vertical scar from previous cesarean delivery; Z3A.24 24 weeks gestation of pregnancy

== ENCOUNTER → 2021-10-16 | Outpatient (CLI) | payer OTHER ==
[2021-10-16 16:37] LABS: HEMATOCRIT 33.5 % (36.0-47.0); HEMOGLOBIN 10.6 g/dl (12.0-15.5); MEAN CORPUSCULAR HEMOGLOBIN 28.8 pg (27.0-33.0); MEAN CORPUSCULAR HGB CONC 31.6 g/dl (32.0-36.5); PLATELET COUNT, AUTOMATED 260 10^3/uL (150-450); RED BLOOD COUNT 3.68 10^6/uL (4.00-5.40)
[2021-10-16 17:13] LABS: TOTAL PROTEIN,RANDOM URINE 92.2 MG/DL (0.0-12.0)
[2021-10-16 17:16] LABS: ALT/SGPT 13 U/L (12-78); BILIRUBIN,TOTAL 0.2 MG/DL (0.2-1.0); CREATININE FOR GFR 0.45 MG/DL (0.55-1.30); GLOMERULAR FILTRATION RATE > 60.0 (>60); GLUCOSE CHALLENGE TEST 1 HOUR 107 MG/DL (LESS THAN 140); LDH LACTATE DEHYDROGENASE 112 U/L (84-246); URIC ACID 5.7 MG/DL (2.6-6.0)
[2021-10-16 18:19] LABS: GC DNA AMPLIFICATION NEGATIVE (NEGATIVE)
== END ==
LOC: M PLALAB 11:24
PROVIDERS: ATTEND Advanced Practice Midwife
DX: O10.919 Unspecified pre-existing hypertension complicating pregnancy, unspecified trimester (principal)

== ENCOUNTER → 2021-11-06 | Outpatient (CLI) | payer OTHER ==
--- NOTE | 2021-11-06 16:19 | REP ---
INDICATION: WEEKLY BPP HYPERTENSION. COMPARISON: Multiple TECHNIQUE: Transabdominal scan FINDINGS: Multiple ultrasonographic images of the gravid uterus shows a single living intrauterine gestation in the breech presentation. Doppler interrogation of the heart shows a heart rate of 126 beats per minute. The subjective amniotic fluid volume is normal. The calculated amniotic fluid index is 14.6 with an expected range of 8.9-23.6. The placenta is posterior fundal and not low-lying. A cervical length measurement was not obtained. biophysical profile score is 2 for breathing, 2 for movement, 2 for tone, and 2 for amniotic fluid volume giving a sum total of 8/8. BPD: 7.8 cm 31 weeks 2 days HC: 29.7 cm 32 weeks 6 days AC: 25.5 cm 39 weeks 4 days FL: 6 cm 31 weeks 2 days The estimated weight is 1601 g which is at the 38th percentile Doppler interrogation of the umbilical artery shows an A\B ratio of 2.33. This is within the normal range. IMPRESSION: Limited OB ultrasound as described above. The estimated gestational age is 31 weeks 1 day via composite criteria with an estimated date of delivery of 01/07/2022 by today's exam. <Electronically signed by Lalito Hendricks > 11/06/21 [id number]
== END ==
LOC: M WHC 14:54
PROVIDERS: ATTEND Advanced Practice Midwife
DX: O99.013 Anemia complicating pregnancy, third trimester (principal); Z3A.29 29 weeks gestation of pregnancy; O10.913 Unspecified pre-existing hypertension complicating pregnancy, third trimester

== ENCOUNTER → 2021-11-13 | Outpatient (CLI) | payer OTHER | LOC: M WHC 07:58 | PROVIDERS: ATTEND Advanced Practice Midwife | DX: O99.013 Anemia complicating pregnancy, third trimester (principal); Z3A.29 29 weeks gestation of pregnancy; O10.913 Unspecified pre-existing hypertension complicating pregnancy, third trimester ==

== ENCOUNTER → 2021-11-20 | Outpatient (CLI) | payer OTHER | LOC: M WHC 10:16 | PROVIDERS: ATTEND Advanced Practice Midwife | DX: O99.013 Anemia complicating pregnancy, third trimester (principal); O99.213 Obesity complicating pregnancy, third trimester; Z3A.29 29 weeks gestation of pregnancy; O10.913 Unspecified pre-existing hypertension complicating pregnancy, third trimester ==

== ENCOUNTER → 2021-11-27 | Outpatient (CLI) | payer OTHER | LOC: M WHC 09:51 | PROVIDERS: ATTEND Advanced Practice Midwife | DX: O10.919 Unspecified pre-existing hypertension complicating pregnancy, unspecified trimester (principal) ==

== ENCOUNTER → 2021-12-04 | Outpatient (CLI) | payer OTHER | LOC: M WHC 10:22 | PROVIDERS: ATTEND Advanced Practice Midwife | DX: O10.919 Unspecified pre-existing hypertension complicating pregnancy, unspecified trimester (principal) ==

== ENCOUNTER → 2021-12-11 | Outpatient (CLI) | payer OTHER ==
[~2021-12-11] MED LIST changes: +FERR325T82 PO; +LABE200T32 PO
== END ==
LOC: M WHC 09:48
PROVIDERS: ATTEND Advanced Practice Midwife
DX: O10.919 Unspecified pre-existing hypertension complicating pregnancy, unspecified trimester (principal)

== ENCOUNTER → 2021-12-18 | Outpatient (CLI) | payer OTHER | LOC: M LABSMTC 11:24 | PROVIDERS: ATTEND Anesthesiology | DX: Z01.818 Encounter for other preprocedural examination (principal); Z11.52 Encounter for screening for COVID-19 ==

== ENCOUNTER → 2021-12-18 | Outpatient (CLI) | payer OTHER | LOC: M WHC 09:52 | PROVIDERS: ATTEND Advanced Practice Midwife | DX: O10.919 Unspecified pre-existing hypertension complicating pregnancy, unspecified trimester (principal) ==

== ENCOUNTER → 2021-12-18 | Outpatient (REF) | payer OTHER | LOC: M SFHCWAGY 12:54 | PROVIDERS: ATTEND Obstetrics & Gynecology | DX: Z36.89 Encounter for other specified antenatal screening (principal); Z3A.36 36 weeks gestation of pregnancy ==

== ENCOUNTER → 2022-12-26 | Outpatient (CLI) | payer OTHER ==
[~2022-12-26] MED LIST changes: -LABE100T4 PO; +LABE100T6 PO; -LABE200T32 PO; +LABE200T5 PO
[2022-12-26 15:00] LABS: ALBUMIN 3.5 G/DL (3.2-5.2); ALKALINE PHOSPHATASE 69 U/L (46-116); ALT/SGPT 15 U/L (7.0-40); AST/SGOT 14 U/L (<34); BILIRUBIN,TOTAL 0.3 MG/DL (0.3-1.2); BLOOD UREA NITROGEN 12 MG/DL (9-23); CALCIUM LEVEL 9.3 MG/DL (8.5-10.1); CARBON DIOXIDE LEVEL 30 MMOL/L (20-31); CHLORIDE LEVEL 105 MMOL/L (98-107); CHOLESTEROL LEVEL 145 MG/DL (<200); CHOLESTEROL RISK RATIO 2.91 (<5); CREATININE FOR GFR 0.54 MG/DL (0.55-1.30); GLOMERULAR FILTRATION RATE > 60.0 (>60); GLUCOSE, FASTING 86 MG/DL (60-100); HDL CHOLESTEROL 49.8 MG/DL (>40); LDL CHOLESTEROL 68.2 MG/DL (<100); NON-HDL-C 95 MG/DL; POTASSIUM SERUM 4.2 MMOL/L (3.5-5.1); SODIUM LEVEL 141 MMOL/L (136-145); TOTAL PROTEIN 6.9 G/DL (5.7-8.2); TRIGLYCERIDES LEVEL 135 MG/DL (<150)
== END ==
LOC: M LAB 13:19
PROVIDERS: ATTEND Student in an Organized Health Care Education/Training Program
DX: R03.0 Elevated blood-pressure reading, without diagnosis of hypertension (principal)